=== PATIENT | female | born 1960 | race Caucasian/White ===

== ENCOUNTER 2020-10-03 16:14 | Emergency (ER) | payer MEDICAID ==
[~2020-10-03] VITALS: Ht 160 cm; Wt 69.5 kg
[2020-10-03 17:06] LABS: BASOPHILS # (AUTO) 0.1 X10'3 (0-0.2); BASOPHILS % (AUTO) 0.9 % (0-1); EOSINOPHILS # (AUTO) 0.1 X10'3 (0-0.9); EOSINOPHILS % (AUTO) 0.8 % (0-6); HEMATOCRIT 41.7 % (35.0-45.0); HEMOGLOBIN 13.8 g/dl (12.0-16.0); LYMPHOCYTES # (AUTO) 2.9 X10'3 (1.1-4.8); LYMPHOCYTES % (AUTO) 33.6 % (21-51); MEAN CORPUSCULAR HEMOGLOBIN 33.4 PG (27.0-31.0); MEAN CORPUSCULAR HGB CONC 33.2 g/dL (33.0-36.5); MEAN CORPUSCULAR VOLUME 100.6 FL (78-98); MEAN PLATELET VOLUME 7.5 FL (7.4-10.4); MONOCYTES # (AUTO) 0.8 X10'3 (0-0.9); MONOCYTES % (AUTO) 9.3 % (2-12); NEUTROPHILS # (AUTO) 4.8 X10'3 (1.8-7.7); NEUTROPHILS % (AUTO) 55.4 % (42-75); PLATELET COUNT 346 X10'3 (140-440); RED BLOOD COUNT 4.14 X10'6 (4.20-5.60); RED CELL DISTRIBUTION WIDTH 13.3 % (11.5-14.5); WHITE BLOOD COUNT 8.7 X10'3 (4.5-11.0)
[2020-10-03 17:20] LABS: ALANINE AMINOTRANSFERASE 26 U/L (12-78); ALBUMIN/GLOBULIN RATIO 1.3 (1.1-1.5); ALKALINE PHOSPHATASE 82 IU/L (46-116); ANION GAP 14 (8-16); ASPARTATE AMINO TRANSFERASE 21 U/L (10-37); BILIRUBIN,TOTAL 0.9 MG/DL (0.1-1.0); BLOOD UREA NITROGEN 10 MG/DL (7-18); BUN/CREATININE RATIO 11.8 (6.6-38.0); CALCIUM 9.1 MG/DL (8.5-10.1); CHLORIDE 105 MMOL/L (99-107); CREATININE 0.85 MG/DL (0.40-0.90); GLUCOSE 74 MG/DL (70-104); POTASSIUM 3.5 MMOL/L (3.5-5.1); SODIUM 140 MMOL/L (135-145); TOTAL CARBON DIOXIDE 20.9 MMOL/L (24-32); TOTAL PROTEIN 7.2 G/DL (6.4-8.2); eGFR 68 ML/MIN
[2020-10-03 17:29] LABS: ETHANOL < 0.010 GM/DL (0.0-0.010)
--- NOTE | 2020-10-03 18:51 | NUR ---
CT called stating needing hcg- spoke with DR gordon who states to just to the scan anyway. Attempting to contact CT.
--- NOTE | 2020-10-03 18:53 | NUR ---
Joie informed CT that Dr. Christy wants patient to have CT scan of head done W/O the results of HCG
[2020-10-03] MEDS ORDERED: haloperidol lactate 5mg/ml inj IM ONE (19:00)
[2020-10-03] MEDS ORDERED: LORazepam 2 mg/ml vial IM ONE (19:00)
[2020-10-03] MEDS ORDERED: diphenhydrAMINE 50 mg/ml inj IM ONE (19:00)
--- NOTE | 2020-10-03 20:04 | NUR ---
restrains removed at 1900. patient given medication ordered by MD because of patient behavior ( combative).
[2020-10-03 20:17] LABS: URINE HCG NEGATIVE (NEG)
[2020-10-03 20:23] LABS: URINE AMPHETAMINE SCREEN NEGATIVE (Neg); URINE BARBITUATE SCREEN NEGATIVE (Neg); URINE BENZODIAZEPINES SCREEN NEGATIVE (Neg); URINE CANNABINOID SCREEN POSITIVE (Neg); URINE COCAINE SCREEN NEGATIVE (Neg); URINE METHADONE SCREEN NEGATIVE (Neg); URINE OPIATE SCREEN NEGATIVE (Neg); URINE PHENCYCLIDINE SCREEN NEGATIVE (Neg)
[2020-10-03 20:24] LABS: GLUCOSE, URINE NEGATIVE (Neg); KETONES,URINE >=80 mg/dl (Neg); LEUKOCYTE ESTERASE ,URINE NEGATIVE (Neg); NITRITES, URINE NEGATIVE (Neg); OCCULT BLOOD,URINE NEGATIVE (Neg); PH,URINE 5.5 (4.8-8.0); PROTEIN,URINE NEGATIVE (Neg); UROBILINOGEN,URINE 0.2 E.U/dL (0.2-1.0)
[2020-10-03 20:30] LABS: COLOR,URINE DARK YELLOW (Yellow); UA COLLECTION TYPE VOIDED
[2020-10-03 20:31] LABS: CLARITY,URINE SLIGHTLY CLOUDY (Clear)
[2020-10-03 20:32] LABS: BACTERIA,URINE 2+ /HPF (Neg); MUCUS STRANDS MANY /LPF (Neg); RBC,URINE 0-2 /HPF (0-2); SQUAMOUS EPITHELIAL CELL,UR MANY /LPF (FEW); WBC,URINE 0-4 /HPF (0-4)
[2020-10-03 22:58] VITALS: BP 122/78
--- NOTE | 2020-10-04 06:30 | NUR ---
PT HAS NO RESTRAINTS ON.
--- NOTE | 2020-10-04 07:00 | NUR ---
PT SLEEPING QUIETLY. NO ACUTE DISTRESS NOTED AT THIS TIME
--- NOTE | 2020-10-04 10:35 | NUR ---
[facility] AT BEDSIDE INTERVIEWING PT.
--- NOTE | 2020-10-04 10:43 | NUR ---
RELIEVING RN FOR BREAK, PT HAS BE[facility], WILL KEEP PT ON 5150 AND START LOOKING FOR PLACEMENT
--- NOTE | 2020-10-04 11:31 | NUR ---
MOM HAYES JONES LIVES IN [place]. [phone]. MOM STATES, " ONE DAY SHE LOVES ME, NEXT DAY SHE HATES ME. PT IS SLEEPING NOW AND DID NOT WANT TO WAKE HER FOR PHONE CALL.
--- NOTE | 2020-10-04 11:49 | NUR ---
DAUGHTER WENDY CALLED LIVES IN . [facility] [phone]. ALSO GAVE US PT PARTNERS PHONE NUMBER STEPHAN CASTILLO [phone]
--- NOTE | 2020-10-04 15:19 | NUR ---
talking with her daughter on the phone.
--- NOTE | 2020-10-04 15:21 | NUR ---
REPORT GIVEN TO [facility]. PT COOPERATIVE WITH CARE AND APPROPRIATE WITH STAFF. PT UPSET HER DAUGHTER ON THE PHONE AND WANTED TO CALL HER BACK AND APOLOGIZE. PHONE WAS PROVIDED AND NOW TALKING WITH WENDY-DAUGHTER.
[2020-10-04] MEDS ORDERED: NO HOME MEDS (17:21)
== END 2020-10-04 16:02 ==
LOC: ER 16:15
DX: F23 Brief psychotic disorder (principal); Z20.822 Contact with and (suspected) exposure to COVID-19; F12.10 Cannabis abuse, uncomplicated; R41.0 Disorientation, unspecified; R45.1 Restlessness and agitation; Z59.0 Homelessness
CPT/HCPCS: 36415; 70450; 80053; 80305; 80320; 81001; 81025; 84443; 85025; 87635; 96372; 99285; C9803; J1200; J1630; J2060